=== PATIENT | female | born 2000 | race African-American/Black ===

== ENCOUNTER 2022-10-09 08:54 | Outpatient (CLI) | payer BC, SELFPAY ==
--- NOTE | ~2022-10-09 | XR_ITS ---
Left foot Technique: AP, oblique, and lateral views were obtained. Clinical History: Arthralgia Findings: No acute fracture or dislocation is seen. Osseous alignment is anatomic. Joint spaces are p reserved without erosive or degenerative change. Soft tissues are unremarkable. Impression: Unremarkable left foot radiographs. Reviewed, dictated and finalized at [facility]. Impression: Unremarkable left foot radiographs.
--- NOTE | ~2022-10-09 | XR_ITS ---
Left ankle Technique: AP, oblique, and lateral views were obtained. Clinical History: Arthralgia Findings: No acute fracture or dislocation is seen. Osseous alignment is anatomic. Ankle mortise and other visualized joint spaces are preserved. Soft tissues are otherwise unremarkable. Impression: Unremarkable left ankle. Reviewed, dictated and finalized at [facility]. Impression: Unremarkable left ankle.
== END 2022-10-09 08:55 | disposition home or self-care (01) ==
PROVIDERS: PCP Nurse Practitioner Family; Visit Provider Nurse Practitioner Family
DX: M25.572 Pain in left ankle and joints of left foot (principal)
CPT/HCPCS: 73610; 73630